=== PATIENT | male | born 1970 | race Caucasian/White ===

== ENCOUNTER 2017-03-14 12:56 | Emergency (ER) | payer OTHER ==
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
== END 2017-03-14 17:16 | disposition home or self-care (01) ==
LOC: SED 12:56
DX: S00.03XA Contusion of scalp, initial encounter (principal); S16.1XXA Strain of muscle, fascia and tendon at neck level, initial encounter; S29.012A Strain of muscle and tendon of back wall of thorax, initial encounter; I10 Essential (primary) hypertension; V43.53XA Car driver injured in collision with pick-up truck in traffic accident, initial encounter
CPT/HCPCS: 70450; 72072; 72125; 96372; 99284; J1885